=== PATIENT | male | born 1965 | race Caucasian/White ===

== ENCOUNTER 2017-05-15 21:16 | Emergency (ER) | payer OTHER ==
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
[2017-05-15] MEDS ORDERED: ESCITALOPRAM OX10 MG PO (22:11)
[2017-05-15] MEDS ORDERED: LEVOTHYROXINE25 MCG PO (22:12)
[2017-05-15] MEDS ORDERED: PROTONIX20 M1 PO (22:12)
[2017-05-15] MEDS ORDERED: SUCRALFATE1 G1 PO (22:13)
[2017-05-15] MEDS ORDERED: LISINOPRIL10 M1 PO (22:14)
[2017-05-15 22:34] LABS: ABSOLUTE BASOPHIL COUNT 0 /CUMM (0.0-0.2); ABSOLUTE EOSINOPHIL COUNT 0.1 /CUMM (0.0-0.7); ABSOLUTE GRANULOCYTE CT 2.9 /CUMM (1.4-6.5); ABSOLUTE LYMPH COUNT 1.3 /CUMM (1.2-3.4); ABSOLUTE MONOCYTE COUNT 0.4 /CUMM (0.10-0.60); BASOPHIL % 0.6 % (0.0-2.0); EOSINOPHIL % 2.3 % (0-5); GRANULOCYTE % 61.3 % (42.2-75.2); HEMATOCRIT 34.3 % (42-52); MEAN CORPUSCULAR HGB 33.5 PG (27.0-31.0); MEAN CORPUSCULAR HGB CONC 33.1 G/DL (33.0-37.0); MEAN CORPUSCULAR VOLUME 101.3 FL (80.0-94.0); MEAN PLATELET VOLUME 7.5 FL (7.4-10.4); PLATELET COUNT 118 /CUMM (130-400); RBC DISTRIBUTION WIDTH 14.4 % (11.5-14.5); RED BLOOD CELL CT 3.39 /CUMM (4.70-6.10); WHITE BLOOD CELL COUNT 4.7 /CUMM (4.8-10.8)
[2017-05-17 14:38] VITALS: BP 134/68
== END 2017-05-17 14:52 ==
LOC: ERH 21:16
PROVIDERS: Pediatrics
DX: F10.20 Alcohol dependence, uncomplicated (principal)
CPT/HCPCS: 80307; G0480; J3101